=== PATIENT | female | born 1995 | race African-American/Black ===

== ENCOUNTER 2020-11-01 05:17 | Emergency (ER) | payer OTHER ==
[~2020-11-01] VITALS: Ht 175.3 cm; Wt 74.0 kg
[2020-11-01] MEDS ORDERED: PREDNISONE 20MG TABLET PO STA (06:11)
[2020-11-01] MEDS ORDERED: IPRATROPIUM BROMIDE (0.02%) 0.5MG/2.5ML NEB HHN STA ×2 (06:11→08:01)
[2020-11-01] MEDS ORDERED: ALBUTEROL (0.083%) 2.5MG/3ML NEB HHN STA ×2 (06:11→08:01)
[2020-11-01] MEDS ORDERED: P50 MT (09:20)
[2020-11-01] MEDS ORDERED: ALBU6.7H15 INH (09:20)
[2020-11-01] MEDS ORDERED: ALBU05 NEB (09:20)
[2020-11-01 10:15] VITALS: BP 133/73
== END 2020-11-01 10:25 | disposition home or self-care (01) ==
LOC: ER 05:57
DX: J45.901 Unspecified asthma with (acute) exacerbation (principal); F12.10 Cannabis abuse, uncomplicated
CPT/HCPCS: 71045; 81025; 94640; 94644; 99285; J7512; Z7610

== ENCOUNTER 2022-08-07 23:19 | Emergency (ER) | payer OTHER ==
[~2022-08-07] VITALS: Ht 175.3 cm; Wt 75.0 kg
[~2022-08-07 23:19] MED LIST: ALBU05 NEB; ALBU6.7H15 INH; P50 MT
[2022-08-07 23:25] VITALS: O2SAT 97
[2022-08-08] MEDS ORDERED: PREDNISONE 20MG TABLET PO ONE (00:15)
[2022-08-08] MEDS ORDERED: ALBUTEROL (0.083%) 2.5MG/3ML NEB HHN ONE ×2 (00:15→01:30)
[2022-08-08 00:30] VITALS: PULSE 78; RESP 22
[2022-08-08 01:30] VITALS: PULSE 92; RESP 20
[2022-08-08] MEDS ORDERED: ALBU18HF2 IH (02:01)
[2022-08-08] MEDS ORDERED: ALBU05 NEB (02:01)
[2022-08-08] MEDS ORDERED: P50 MT (02:01)
[2022-08-08 02:20] VITALS: BP 146/76; PULSE 106; RESP 20; TEMP 98.4
== END 2022-08-08 03:03 | disposition home or self-care (01) ==
LOC: ER 08-08 00:40
DX: J45.901 Unspecified asthma with (acute) exacerbation (principal); F12.10 Cannabis abuse, uncomplicated
CPT/HCPCS: 94640; 81025; 99285; Z7610 ×3; J7512